=== PATIENT | male | born 1980 | race Two or more races ===

== ENCOUNTER 2018-04-03 00:22 | Emergency (ER) | payer SELFPAY ==
[~2018-04-03] VITALS: Ht 167.6 cm; Wt 77.1 kg
[2018-04-03] MEDS ORDERED: ATORVASTATIN CA40 MG ORAL (00:33)
[2018-04-03] MEDS ORDERED: METFORMIN HCL850 M1 ORAL (00:33)
[2018-04-03 00:35] VITALS: BP 132/89
[2018-04-03] MEDS ORDERED: Insulin Human Regular 100units/ml 3ml SUBQ ONE (00:45)
[2018-04-03] MEDS ORDERED: metFORMIN 500mg tab ORAL SCH (00:45)
[2018-04-03 01:40] VITALS: BP 132/89
--- NOTE | 2018-04-03 04:12 | Emergency Room Report ---
History of Present Illness General Chief Complaint: Medical Clearance Source: Patient Present Illness HPI Patient 37-year-old male brought in by LUCIUS huerta for increased blood sugar. Patient prior history of type 2 diabetes. Patient reports having had been taking metformin as well as insulin. He reports not having taken his medications. The patient was reportedly incarcerated for alcohol intoxication. The patient denies any current abdominal pain. He had no prior episodes of diabetic ketoacidosis. Allergies: Coded Allergies: No Known Allergies (Unverified , 04/03/18) Patient History Past Medical History: see triage record Reviewed Nursing Documentation: PMH: Agreed; PSxH: Agreed Nursing Documentation-PMH Hx Hypertension: Yes - hyperlipidemia Hx Diabetes: Yes - type 2 Review of Systems All Other Systems: negative except mentioned in HPI Physical Exam Vital Signs Date Time Temp Pulse Resp B/P (MAP) Pulse Ox O2 Delivery O2 Flow Rate FiO2 04/03/18 00:29 99.0 92 16 132/89 95 Room Air Sp02 EP Interpretation: reviewed, normal General Appearance: normal inspection, well appearing, no apparent distress, alert, GCS 15 Head: atraumatic ENT: normal ENT inspection, hearing grossly normal, normal voice Neck: normal inspection, full range of motion, supple, no bony tend Respiratory: normal inspection, lungs clear, normal breath sounds, no respiratory distress, no retraction, no wheezing Cardiovascular #1: regular rate, rhythm, no edema Gastrointestinal: normal inspection, normal bowel sounds, non tender, soft, no guarding, no hernia Genitourinary: no CVA tenderness Musculoskeletal: normal inspection, back normal, normal range of motion Neurologic: normal inspection, alert, oriented x3, responsive, lead ios developer III-XII nml as tested, speech normal Psychiatric: normal inspection, judgement/insight normal, mood/affect normal Skin: normal inspection, normal color, no rash Medical Decision Making Diagnostic Impression: Primary Impression: Hyperglycemia ER Course Patient was noted to have hyperglycemia. Differential diagnosis included wasn' t limited to medication noncompliance, diabetic ketoacidosis among others. Patient has a benign exam and does not appear to require any further imaging or laboratory testing at this time. The patient was given oral metformin as well as subcutaneous insulin. Patient noted have slight improvement in his blood sugar. Patient is able tolerate by mouth fluids. He shows no evidence of a rapid respiratory rate or other signs of diabetic ketoacidosis. The patient stable for discharge.Patient is advised not to drink excessive alcohol.The patient was discharged with heel compressor. Last Vital Signs Date Time Temp Pulse Resp B/P (MAP) Pulse Ox O2 Delivery O2 Flow Rate FiO2 04/03/18 01:40 98.4 84 16 132/89 95 Room Air Status: improved Disposition: HOME, SELF-CARE Condition: Stable Referrals: NOT CHOSEN IPA/MD,REFERRING (PCP) Departure Forms: Usp Clearance Patient Instructions: Hyperglycemia Mahesh Moore MD Apr 03, 2018 04:12
== END 2018-04-03 01:40 | disposition home or self-care (01) ==
LOC: EMR 00:37
DX: E11.65 Type 2 diabetes mellitus with hyperglycemia (principal); Z79.4 Long term (current) use of insulin; E78.5 Hyperlipidemia, unspecified
CPT/HCPCS: 99282; J1815